=== PATIENT | male | born 1950 | race Caucasian/White ===

== ENCOUNTER 2020-10-14 06:04 | Day surgery (SDC) | payer OTHER ==
[~2020-10-14] VITALS: Ht 182.9 cm; Wt 98.6 kg
[~2020-10-14 06:04] MED LIST: ASPI325 PO; CITA20 PO; CLOP75 PO; ETOD500 PO; FLUO20; MELO7.5; METO25; OLME20 PO; PREG75 PO; Prinivil10 MG PO; RABE20; SIMV80 PO; TRAM50; TRAM50 PO
--- NOTE | 2020-10-14 16:19 | NUR ---
DISCHARGE INSTRUCTIONS REVIEWED WITH PATIENT, VERBAL UNDERSTANDING, PROVIDED WITH PAPERWORK. ALL PERSONAL BELONGINGS SENT WITH PATIENT, TAKEN OUT TO PRIVATE VEHICLE VIA W/C. NADN AT TIME OF DISPO. ENCOUARGED TO FOLLOW UP SCHEDULED.
== END 2020-10-14 16:00 | disposition home or self-care (01) ==
LOC: MHTC 06:04
DX: Z45.02 Encounter for adjustment and management of automatic implantable cardiac defibrillator (principal); I42.9 Cardiomyopathy, unspecified; I49.01 Ventricular fibrillation; I10 Essential (primary) hypertension; I25.10 Atherosclerotic heart disease of native coronary artery without angina pectoris; Z87.891 Personal history of nicotine dependence
CPT/HCPCS: 33262; 99152; 99153; C1722; C1781; J0690; J1644; J2250; J3010; J7030; J7040

== ENCOUNTER 2021-03-24 11:56 | Emergency (ER) | payer OTHER ==
[~2021-03-24] VITALS: Ht 182.9 cm; Wt 97.5 kg
== END 2021-03-24 15:11 | disposition home or self-care (01) ==
LOC: ER 11:56
DX: U07.1 COVID-19 (principal); I25.2 Old myocardial infarction; Z79.899 Other long term (current) drug therapy; Z79.82 Long term (current) use of aspirin; Z79.02 Long term (current) use of antithrombotics/antiplatelets; Z87.891 Personal history of nicotine dependence
CPT/HCPCS: 99281-25; M0243; Q0243

== ENCOUNTER 2024-10-06 11:36 | Emergency (ER) | payer OTHER ==
[~2024-10-06] VITALS: Ht 182.9 cm; Wt 97.5 kg
[~2024-10-06 11:36] MED LIST changes: +METO25ER PO; -SIMV80 PO; +Zocor20 MG PO
--- NOTE | 2024-10-06 11:39 | NUR ---
RAPID RESPONSE CALL TO ORTHO GYM AT 1127 PT FELT DIZZY. HE DID STATE HE TOOK ALL HIS BP MEDICATION THIS AM BEFORE COMING IN. PT WAS BRISKLY SENT TO THE ER VIA WHEELCHAIR TO BE CHECKED IN. CATRACHITA ANDRES RN RESPONDED TO RAPID RESPONSE CALL ALONG WITH PCU COORDINATOR SERA RIVERO RN.
[2024-10-06 12:08] LABS: BASOPHILS ABSOLUTE AUTO 0.03 K/mm3 (0.00-0.23); BASOPHILS PERCENT AUTO 0 % (0-2); EOSINOPHILS ABSOLUTE AUTO 0.19 K/mm3 (0.00-0.68); EOSINOPHILS PERCENT AUTO 2 % (0-6); Hematocrit 40.1 % (37.0-53.0); Hemoglobin 13.5 g/dL (13.5-17.5); IMMATURE GRAN ABSOLUTE AUTO 0.02 K/mm3 (0.00-0.10); IMMATURE GRAN PERCENT AUTO 0 % (0-1); LYMPHOCYTES ABSOLUTE AUTO 4.23 K/mm3 (0.84-5.20); LYMPHOCYTES PERCENT AUTO 42 % (21-46); MONOCYTES ABSOLUTE AUTO 0.74 K/mm3 (0.16-1.47); MONOCYTES PERCENT AUTO 7 % (4-13); Mean Corpuscular HGB 31.8 pg (26.0-34.0); Mean Corpuscular HGB Conc 33.7 g/dL (31.5-36.5); Mean Corpuscular Volume 95 fL (80-100); Mean Platelet Volume 11.9 fL (9.1-12.4); NEUTROPHILS ABSOLUTE AUTO 4.87 K/mm3 (1.96-9.15); NEUTROPHILS PERCENT AUTO 48 % (41-73); Platelet Count 208 K/mm3 (150-400); RDW Coefficient Variation 13.3 % (11.7-14.2); RDW Standard Deviation 45.1 fL (35.1-46.3); Red Blood Cell Count 4.24 M/mm3 (4.30-5.90); White Blood Cell Count 10.08 K/mm3 (4.00-11.30)
[2024-10-06 12:14] LABS: Albumin/Globulin Ratio 1.2 (0.8-1.8); Bilirubin, Total 0.5 mg/dL (0.1-1.0); Bun/Creatinine Ratio 23.7 (12.0-20.0); Calcium, Blood 8.8 mg/dL (8.5-10.1); Creatinine, Blood 1.18 mg/dL (0.60-1.20); Globulin, Blood 3.2 g/dL (2.2-4.0); Total Protein, Blood 7.2 g/dL (6.4-8.2)
[2024-10-06] MEDS ORDERED: NS 1,000 ML IV SCH ×3 (12:15→14:25)
[2024-10-06 14:30] VITALS: BP 135/72
== END 2024-10-06 14:47 | disposition home or self-care (01) ==
LOC: ER 11:36
PROVIDERS: Student in an Organized Health Care Education/Training Program
DX: E86.1 Hypovolemia (principal); I95.9 Hypotension, unspecified; E78.5 Hyperlipidemia, unspecified; I10 Essential (primary) hypertension; I25.2 Old myocardial infarction; Z79.82 Long term (current) use of aspirin; Z79.899 Other long term (current) drug therapy; Z87.891 Personal history of nicotine dependence
CPT/HCPCS: 71046; 80053; 82947; 84484; 85025; 93005; 93010; 99284-25; J7030

== ENCOUNTER 2024-10-22 05:54 | Day surgery (SDC) | payer OTHER ==
[2024-10-21 21:35] VITALS: BP 110/66
[~2024-10-22] VITALS: Ht 182.9 cm; Wt 95.0 kg
[2024-10-22] VITALS (19 sets, daily range): BP systolic 82–137; BP diastolic 52–86
[2024-10-22] MEDS ORDERED: Ondansetron HCl 2 MG / ML 2ML Vial ONE (06:13)
[2024-10-22] MEDS ORDERED: Ketorolac Tromethamine 30mg Vial ONE (06:13)
[2024-10-22] MEDS ORDERED: Dexamethasone Sod Phos 10 MG/ML 1ML VIAL ONE (06:13)
[2024-10-22] MEDS ORDERED: Lidocaine HCl 2% 20 ML MDV ONE (06:13)
[2024-10-22] MEDS ORDERED: CeFAZolin Sodium 2,000 MG in NS 100 ML IV SCH ×2 (06:20→15:45)
[2024-10-22] MEDS ORDERED: Chlorhexidine Mouth Care 15 ML UDC MT SCH (06:20)
[2024-10-22] MEDS ORDERED: OxyCODONE HCL 10 MG TABCR PO SCH (06:20)
[2024-10-22] MEDS ORDERED: Ropivacaine 0.5% HCl/Pf 123.125 MG,EPINEPHrine HCL 0.25 MG,Ketorolac Tromethamine 15 MG... INFIL SCH (06:20)
[2024-10-22] MEDS ORDERED: Lactated Ringer's 1,000 ML IV SCH ×2 (06:20→07:20)
[2024-10-22] MEDS ORDERED: Tranexamic Acid 100 ML IV SCH (06:20)
[2024-10-22] MEDS ORDERED: Acetaminophen 500 MG Tab PO SCH ×2 (06:20→08:00)
[2024-10-22] MEDS ORDERED: Dexmedetomidine HCL 200 MCG / 2 ML ONE (06:22)
[2024-10-22] MEDS ORDERED: propofoL 100 ML IV ONE (06:22)
[2024-10-22] MEDS ORDERED: Bupivacaine 0.5% Inj 10 ML Vial ONE (06:22)
[2024-10-22] MEDS ORDERED: propofoL 0 ML IV ONE (06:28)
[2024-10-22] MEDS ORDERED: CeFAZolin Sodium 2,000 MG VIAL ONE (06:48)
[2024-10-22] MEDS ORDERED: FentaNYL Citrate 50 MCG/ML 2 ML Injection ONE (07:02)
--- NOTE | 2024-10-22 07:07 | NUR ---
Wheelchaired into Day Surgery. History, Chart, Medications and Allergies reviewed before start of procedure. Pre-Op teaching done. Pt verbalizes understanding.
[2024-10-22] MEDS ORDERED: Bisacodyl 10 MG Supp PR PRN (07:10)
[2024-10-22] MEDS ORDERED: HYDROmorphone HCl/Pf 1MG SYR IV PRN (07:10)
[2024-10-22] MEDS ORDERED: DiphenhydrAMINE HCL 25 MG Cap PO PRN (07:10)
[2024-10-22] MEDS ORDERED: Prochlorperazine Edisylate 10 mg Vial IV PRN (07:15)
[2024-10-22] MEDS ORDERED: OxyCODONE HCL 5 MG TAB PO PRN ×2 (07:15)
[2024-10-22] MEDS ORDERED: Promethazine HCl 25 MG Tab PO PRN (07:15)
[2024-10-22] MEDS ORDERED: Vancomycin HCL 1,000 MG in NS 250 ML IV SCH ×3 (07:20→20:00)
[2024-10-22] MEDS ORDERED: Magnesium Hydroxide Conc 10 ML UDC PO PRN (07:20)
[2024-10-22] MEDS ORDERED: Ondansetron HCl 2 MG / ML 2ML Vial IV PRN (07:20)
[2024-10-22] MEDS ORDERED: Metoclopramide HCl 5MG / ML 2ML Vial IV PRN (07:20)
[2024-10-22] MEDS ORDERED: ePHEDrine Sulfate 50 MG/ML 1ML Injection ONE ×2 (07:40→10:22)
[2024-10-22] MEDS ORDERED: Vasopressin 20 UNITS/ML 1ML Vial ONE (08:03)
[2024-10-22] MEDS ORDERED: Phenylephrine HCl 100 MCG/ML-NS 10MLSYR (1MG/10ML) ONE ×2 (08:08→08:36)
[2024-10-22] MEDS ORDERED: Vancomycin HCl 1000 MG ADDvantage ONE (08:22)
[2024-10-22] MEDS ORDERED: Glycopyrrolate 0.2 MG/ML 5ML VIAL ONE (08:36)
[2024-10-22] MEDS ORDERED: Lactated Ringer's 1,000 ML IV ONE (10:25)
--- NOTE | 2024-10-22 10:48 | NUR ---
PACU NOTE PT HYPOTENSIVE AT 1020, BP 82/57. PT GIVEN 10MG EPHEDRINE PER DR MADRIGAL. PT TO STAY IN PACU MONITORING FOR 1/2 HR C STABLE BLOOD PRESSURES PER DR MADRIGAL. NO OTHER CONCERNS, HR REMAINS REGULAR IN THE 70'S-80'S. WILL CONTINUE TO MONITOR IN PACU.
--- NOTE | 2024-10-22 11:10 | NUR ---
POST OP ARRIVAL TO SURGICAL UNIT VIA HOSPITAL BED. ALERT, ORIENTED, & PLEASANT. LUNGS CLEAR & HRR. R HIP/THIGH w/ 3 SITES COVERED w/ TELFA & TEGADERM. NO DRNG NOTED. PPP & ABLE TO WIGGLE TOES. DENIES HAVING ANY NUMBESS FEELING & DESCRIBES THE PAIN A "TOOTHACHE". DECLINES PAIN MEDS. CRYOTHERAPY IN USE. SNACKS & DRINKS GIVEN. FAMILY TO BEDSIDE.
[2024-10-22] MEDS ORDERED: Ketorolac Tromethamine 15mg Vial IV SCH (12:00)
--- NOTE | 2024-10-22 20:04 | NUR ---
SHIFT SUMMARY HAS DONE WELL POST OP OTHER THEN HAVING SOME ASYMTOMATIC ORTHOSTATIC HYPOTENSION w/ THERAPY. UPON AMBULATION TO BATHROOM, NO ISSUES. CURRENTLY DENYING PAIN. EATING & DRINKING WELL. ABLE TO VOID x 1. IVF CONTINUE x 1 BAG PER CARDIOLOGY RECOMENDATION. TELE IN PLACE; NO EVENTS NOTED.
[2024-10-22] MEDS ORDERED: Docusate Sodium 100 MG Cap PO SCH (21:00)
[2024-10-22] MEDS ORDERED: Atorvastatin 10 MG Tab PO SCH (21:00)
[2024-10-22] MEDS ORDERED: Metoprolol Succinate 25 MG TABCR PO SCH (21:00)
[2024-10-22] MEDS ORDERED: Lisinopril 10 MG Tab PO SCH (21:00)
[2024-10-23 00:25] VITALS: BP 105/68
[2024-10-23 05:14] VITALS: BP 124/66
--- NOTE | 2024-10-23 06:05 | NUR ---
SHIFT SUMMARY CELESTINE WAS ALERT AND FULLY ORIENTED ON ASSESSMENT. DRESSINGS TO R HIP X3 C/D/I. PT ABLE TO AMBULATE WITH FWW AND GB, PT HAS PRODUCED POST OP VOID. PT DENIES PAIN AND SOB DISTAL CIRCULATION AND SENSATION INTACT TO EXTS. NO ACUTE EVENTS NO NOTED CHANGES TO PT CONDITION.
[2024-10-23 06:13] LABS: BASOPHILS ABSOLUTE AUTO 0.01 K/mm3 (0.00-0.23); BASOPHILS PERCENT AUTO 0 % (0-2); EOSINOPHILS ABSOLUTE AUTO 0.01 K/mm3 (0.00-0.68); EOSINOPHILS PERCENT AUTO 0 % (0-6); Hematocrit 32.6 % (37.0-53.0); Hemoglobin 10.9 g/dL (13.5-17.5); IMMATURE GRAN ABSOLUTE AUTO 0.03 K/mm3 (0.00-0.10); IMMATURE GRAN PERCENT AUTO 0 % (0-1); LYMPHOCYTES ABSOLUTE AUTO 1.76 K/mm3 (0.84-5.20); LYMPHOCYTES PERCENT AUTO 16 % (21-46); MONOCYTES ABSOLUTE AUTO 0.77 K/mm3 (0.16-1.47); MONOCYTES PERCENT AUTO 7 % (4-13); Mean Corpuscular HGB 31.9 pg (26.0-34.0); Mean Corpuscular HGB Conc 33.4 g/dL (31.5-36.5); Mean Corpuscular Volume 95 fL (80-100); Mean Platelet Volume 11.7 fL (9.1-12.4); NEUTROPHILS ABSOLUTE AUTO 8.31 K/mm3 (1.96-9.15); NEUTROPHILS PERCENT AUTO 76 % (41-73); Platelet Count 170 K/mm3 (150-400); RDW Coefficient Variation 13.4 % (11.7-14.2); RDW Standard Deviation 46.6 fL (35.1-46.3); Red Blood Cell Count 3.42 M/mm3 (4.30-5.90); White Blood Cell Count 10.89 K/mm3 (4.00-11.30)
[2024-10-23 06:33] LABS: Bun/Creatinine Ratio 17.2 (12.0-20.0); Calcium, Blood 8.4 mg/dL (8.5-10.1); Creatinine, Blood 1.22 mg/dL (0.60-1.20); Magnesium, Blood 1.7 mg/dL (1.6-2.4); Potassium, Blood 4.7 mmol/L (3.5-5.5)
[2024-10-23 07:41] VITALS: BP 114/59
[2024-10-23] MEDS ORDERED: ONDA4ODT SL (08:58)
[2024-10-23] MEDS ORDERED: SULTRIDS PO (08:59)
[2024-10-23] MEDS ORDERED: OXAYDO5 M1 PO (08:59)
[2024-10-23] MEDS ORDERED: Aspirin 325 MG Tab PO SCH (09:00)
[2024-10-23] MEDS ORDERED: Pregabalin 75 MG Cap PO SCH (09:00)
[2024-10-23] MEDS ORDERED: Trimethoprim/Sulfamethoxazole DS Tab PO SCH (09:00)
--- NOTE | 2024-10-23 12:09 | NUR ---
DISCHARGE PT EDUCATED ON AND RECEIVED PRINTED DISCHARGE INSTRUCTIONS AND VERBALIZED AN UNDERSTANDING. PT REPORTS FILLING NEW RX'S PRIOR TO SURGERY. EXTRA DRESSING GIVEN TO PT. IV DC'D. TELE BOX RETURNED TO PCU. PT GATHERED ALL PERSONAL BELONGINGS. FAMILY HERE TO TAKE PT HOME. PT W/C OUT TO VEHICLE.
[2024-10-23] MEDS ORDERED: Rivaroxaban 10 MG Tab PO SCH (17:00)
== END 2024-10-23 12:16 | disposition home or self-care (01) ==
LOC: ORSCMMR 05:54 → ORD 07:30 → ORSCMMR 07:30 → SURS 10:16 → ORSCMMR 10-23 12:16 → SURS 10-23 12:16
PROVIDERS: Orthopaedic Surgery
PROC: 0SR90JA Replacement of Right Hip Joint with Synthetic Substitute, Uncemented, Open Approach (ICD-10-PCS; principal; 2024-10-22 07:30)
DX: M16.11 Unilateral primary osteoarthritis, right hip (principal); I25.2 Old myocardial infarction; I25.10 Atherosclerotic heart disease of native coronary artery without angina pectoris; Z87.891 Personal history of nicotine dependence; K21.9 Gastro-esophageal reflux disease without esophagitis; F32.A Depression, unspecified; E78.5 Hyperlipidemia, unspecified; E78.00 Pure hypercholesterolemia, unspecified; Z79.899 Other long term (current) drug therapy; Z79.82 Long term (current) use of aspirin
CPT/HCPCS: 36415; 72170; 80048; 83735; 85025; 93282; 97110; 97112; 97161; 97165; 97530; 97535; A9270; C1713; C1776; J0171; J0690; J0735; J1100; J1885; J2371; J2405; J2704; J2795; J3010; J3370; J7050; J7120

== ENCOUNTER 2025-06-01 12:50 | Inpatient (IN) | payer OTHER ==
[~2025-06-01] VITALS: Ht 182.9 cm; Wt 92.3 kg
[~2025-06-01 12:50] MED LIST changes: +ARTHRITIS PAIN150 GM TOP; +METO25 PO; +ONDA4ODT SL; +OXAYDO5 M1 PO; +SULTRIDS PO; +ZOCOR20 MG PO
--- NOTE | 2025-06-01 14:50 | NUR ---
PT ARRIVED TO ROOM 362.
[2025-06-01 16:03] VITALS: BP 103/74
[2025-06-01] MEDS ORDERED: FLU VACC TS2025(65UP)/MF59C/PF 45 MCG/0.5 ML SYRINGE IM SCH (16:15)
[2025-06-01] MEDS ORDERED: Vancomycin (Pharmacy Consult) IV SCH (17:00)
[2025-06-01] MEDS ORDERED: NS 250 ML IV PRN (17:05)
[2025-06-01 17:38] LABS: Hematocrit 25.2 % (37.0-53.0); Hemoglobin 8.1 g/dL (13.5-17.5); Mean Corpuscular HGB Conc 32.1 g/dL (31.5-36.5); Mean Corpuscular Volume 94 fL (80-100); NRBC ABSOLUTE 0.00 K/mm3 (0.00-0.02); NRBC Auto 0.0 /100 WBC (0.0-0.2); Platelet Count 305 K/mm3 (150-400); RDW Coefficient Variation 15.2 % (11.7-14.2); RDW Standard Deviation 53.0 fL (35.1-46.3)
[2025-06-01] MEDS ORDERED: Polyethylene Glycol 3350 17 gm PO PRN (17:45)
[2025-06-01 17:58] LABS: Vancomycin, Random 11.0 ug/mL
[2025-06-01 18:08] LABS: Anion Gap 5.0 mmol/L (3-11); Blood Urea Nitrogen 24.0 mg/dL (8-24); CO2, Blood 33.0 mmol/L (21-32); Calcium, Blood 8.6 mg/dL (8.5-10.1); Chloride, Blood 101.0 mmol/L (98-108); Creatinine, Blood 1.47 mg/dL (0.60-1.20); Glucose, Blood 107.0 mg/dL (70-99); Potassium, Blood 3.8 mmol/L (3.5-5.5); Sodium, Blood 135.0 mmol/L (136-145)
--- NOTE | 2025-06-01 20:04 | NUR ---
SHIFT SUMMARY DIRECT ADMIT THIS AFTERNOON. PT IS A/OX4. BEDREST AT THIS TIME. ON RA, SATS >92%. ON TELE RUNNING NORMAL SINUS RYTHYM IN THE 'S. PT REPORTS CHRONIC BACK PAIN, MEDICATED PER SEP. PT IS CONT/INCONT OF BOWEL AND BLADDER, X2 SOFT BM'S THIS AFTERNOON. FAMILY AT BEDSIDE. PT IS PLEASANT AND COOPERATIVE WITH CARE AND CALLS APPROPRIATELY.
[2025-06-01 20:27] VITALS: BP 121/85
[2025-06-01] MEDS ORDERED: Lactobacil 2-S.Thermo-Bifido 1 1 Cap PO SCH (21:00)
[2025-06-02] VITALS (9 sets, daily range): BP systolic 122–172; BP diastolic 59–107
--- NOTE | 2025-06-02 06:40 | NUR ---
Shift Summary PT in enteric isolation d/t recent positive CDIFF test from recent April admit. No BM's this shift, report of 2 soft BM during day shift. Continent voids into a urinal, ~250 mL out of kristie urine this shift. Pt medicated for back pain at the start of shift, no other c/o of pain. He slept well t/o most of the night. Medicated with IV ABX as ordered. Pt on bedrest. He states he was ambulatory before being hospitalized. PICC line in [facility] bath provided. BPs done on R calf, BUE DVTs per report. Upper extremity perfusion is good, strong radial pulses and cap refill. Pt AOx4, Teller.
[2025-06-02 12:24] LABS: Ferritin, Serum 404.0 ng/mL (26-388); Total Iron Binding Capacity 165.0 ug/dL (250-450)
[2025-06-02] MEDS ORDERED: Iron Dextran 50 MG / ML 2ML Vial IV ONE (14:05)
[2025-06-02] MEDS ORDERED: Iron Dextran 975 MG in NS 250 ML IV ONE (15:00)
--- NOTE | 2025-06-02 19:23 | NUR ---
SHIFT SUMMARY PT IS A/OX4. BEDREST AT THIS TIME. NO ACUTE EVENTS THROUGHOUT THIS SHIFT. ON TELE RUNNING NORMAL SINUS RYTHYM. MEDICATED WITH OXYCODONE PER SEP FOR CHRONIC BACK PAIN. X1 LOOSE, INCONT BM THIS MORNING. USING URINAL INDEPENDENTLY AT BEDSIDE. PT IS PLEASANT AND COOPERATIVE WITH CARE AND CALLS APPROPRIATELY.
[2025-06-02] MEDS ORDERED: Arginine/Glutamine/Calcium Hmb 1 Packet PO SCH (21:00)
[2025-06-02 21:22] LABS: Creatinine, Blood 1.38 mg/dL (0.60-1.20); Vancomycin, Trough 15.6 ug/mL (5.0-10.0)
[2025-06-03 03:47] VITALS: BP 134/65
[2025-06-03 05:10] LABS: Hematocrit 23.2 % (37.0-53.0); Hemoglobin 7.4 g/dL (13.5-17.5); Mean Corpuscular HGB Conc 31.9 g/dL (31.5-36.5); Mean Corpuscular Volume 92 fL (80-100); NRBC ABSOLUTE 0.00 K/mm3 (0.00-0.02); NRBC Auto 0.0 /100 WBC (0.0-0.2); Platelet Count 389 K/mm3 (150-400); RDW Coefficient Variation 14.9 % (11.7-14.2); RDW Standard Deviation 50.5 fL (35.1-46.3)
[2025-06-03 05:44] LABS: Anion Gap 11.0 mmol/L (3-11); Blood Urea Nitrogen 22.0 mg/dL (8-24); CO2, Blood 27.0 mmol/L (21-32); Calcium, Blood 8.3 mg/dL (8.5-10.1); Chloride, Blood 104.0 mmol/L (98-108); Creatinine, Blood 1.27 mg/dL (0.60-1.20); Glucose, Blood 112.0 mg/dL (70-99); Potassium, Blood 3.5 mmol/L (3.5-5.5); Sodium, Blood 138.0 mmol/L (136-145)
--- NOTE | 2025-06-03 06:16 | NUR ---
ASSUMED CARE APPROXIMATELY 0300. REPORT RECEIVED FROM SABINO KOWALSKI. PT HAS LOOSE STOOLS X2, XL SIZW. BROWN IN COLOR, DARKER. ATTENDS IN PLACE, INCONTINENT. A/O X3, COOPERATIVE WITH CARE. IV ABX'S ADMINISTERED ORDERED. NO COMPLAINTS OF PAIN OR DISCOMFORT. BED AT THE LOWEST POSITION, CALL LIGHT W/I REACH. PT IS ABLE TO MAKE HIS NEEDS KNOWN.
[2025-06-03 07:51] VITALS: BP 122/71
[2025-06-03 11:03] VITALS: BP 105/65
--- NOTE | 2025-06-03 11:48 | NUR ---
CALLED DR GUARDADO- SBP 105 ORDER TO HOLD SPIRONOLACTONE AND LASIX AT THIS TIME.
--- NOTE | 2025-06-03 15:29 | NUR ---
SHIFT SUMMARY- PT ALERT AND ORIENTED 1P MAX ASSIST WITH TRANSFERS. PT IN BED, CALL LIGHT IN REACH NO S&S OF DISTRESS NOTED. PLAN IS TO DC EARLY TOMORROW TO [facility] FOR ABX INFUSIONS TID IV THROUGH THE LEFT UPPER ARM PICC. WILL PASS ON TO NIGHT RN IN BEDSIDE REPORT.
[2025-06-03 15:32] VITALS: BP 120/75
--- NOTE | 2025-06-03 19:26 | NUR ---
CALLED DR GUARDADO- SPOKE TO DR GUARDADO ABOUT THE EXCORIATION IN THE PT GROIN. HE WAS GOING TO PLACE AN ORDER FOR NYSTATIN CREAM. ORDER STILL NOT IN AT THE TIME OF SHIFT CHANGE. ORDER PLACED A VERBAL ORDER HE STATED HE WOULD ORDER IT.
[2025-06-03 19:43] VITALS: BP 122/80
[2025-06-03 23:30] VITALS: BP 131/78
[2025-06-04 03:36] VITALS: BP 116/80
[2025-06-04 07:15] VITALS: BP 118/69
[2025-06-04 09:11] VITALS: BP 120/75
--- NOTE | 2025-06-04 14:53 | NUR ---
DISCHARGE NOTE- PT WAS DC'D TO [facility]. GAVE TELEPHONE REPORT TO SABINO HOWE AT [facility]. SHE HAD NO FURTHER QUESTIONS AT THAT TIME. PT WAS TAKEN VIA WC TRANSPORT. SIT TO STAND LIFT WAS USED TO TRANSFER HIM SAFELY TO THE WHEELCHAIR. PT DISCHARGED WITH THE PICC LINE IN THE [place]. SABINO AWARE.
== END 2025-06-04 11:27 | DRG 539 ==
LOC: MEDS 12:50 → ENPENDDIS 06-03 18:27 → MEDS 06-04 11:27
PROVIDERS: Internal Medicine; ADMIT Hospitalist
DX: M86.9 Osteomyelitis, unspecified (principal); A41.9 Sepsis, unspecified organism; I33.0 Acute and subacute infective endocarditis; R65.21 Severe sepsis with septic shock; I50.22 Chronic systolic (congestive) heart failure; N17.9 Acute kidney failure, unspecified; I13.0 Hypertensive heart and chronic kidney disease with heart failure and stage 1 through stage 4 chronic kidney disease, or unspecified chronic kidney disease; M46.40 Discitis, unspecified, site unspecified; N18.30 Chronic kidney disease, stage 3 unspecified; I25.10 Atherosclerotic heart disease of native coronary artery without angina pectoris; I25.2 Old myocardial infarction; I51.3 Intracardiac thrombosis, not elsewhere classified; B95.62 Methicillin resistant Staphylococcus aureus infection as the cause of diseases classified elsewhere; D50.9 Iron deficiency anemia, unspecified; Z86.2 Personal history of diseases of the blood and blood-forming organs and certain disorders involving the immune mechanism; Z86.74 Personal history of sudden cardiac arrest; Z95.810 Presence of automatic (implantable) cardiac defibrillator; Z95.5 Presence of coronary angioplasty implant and graft; Z86.711 Personal history of pulmonary embolism; Z86.19 Personal history of other infectious and parasitic diseases; Z79.899 Other long term (current) drug therapy
CPT/HCPCS: 36569; 80048; 80202; 82565; 82728; 83540; 83550; 85027; 97110; 97162; 97530; A9270; J0712; J1750; J3373; J7050

== ENCOUNTER 2025-06-08 17:28 | Emergency (ER) | payer OTHER ==
[~2025-06-08] VITALS: Ht 182.9 cm; Wt 94.8 kg
[2025-06-08] MEDS ORDERED: NS 1,000 ML IV SCH (18:15)
[2025-06-08] MEDS ORDERED: Morphine Sulfate 10 MG/ML 1MLSYR IV ONE (18:20)
[2025-06-08 18:31] LABS: BASOPHILS ABSOLUTE AUTO 0.03 K/mm3 (0.00-0.23); BASOPHILS PERCENT AUTO 0 % (0-2); EOSINOPHILS ABSOLUTE AUTO 0.03 K/mm3 (0.00-0.68); EOSINOPHILS PERCENT AUTO 0 % (0-6); Hematocrit 24.9 % (37.0-53.0); Hemoglobin 8.2 g/dL (13.5-17.5); IMMATURE GRAN ABSOLUTE AUTO 0.17 K/mm3 (0.00-0.10); IMMATURE GRAN PERCENT AUTO 2 % (0-1); LYMPHOCYTES ABSOLUTE AUTO 1.66 K/mm3 (0.84-5.20); LYMPHOCYTES PERCENT AUTO 16 % (21-46); MONOCYTES ABSOLUTE AUTO 0.81 K/mm3 (0.16-1.47); MONOCYTES PERCENT AUTO 8 % (4-13); Mean Corpuscular HGB Conc 32.9 g/dL (31.5-36.5); Mean Corpuscular Volume 96 fL (80-100); NEUTROPHILS ABSOLUTE AUTO 7.43 K/mm3 (1.96-9.15); NEUTROPHILS PERCENT AUTO 73 % (41-73); NRBC ABSOLUTE 0.00 K/mm3 (0.00-0.02); NRBC Auto 0.0 /100 WBC (0.0-0.2); Platelet Count 354 K/mm3 (150-400); RDW Coefficient Variation 15.8 % (11.7-14.2); RDW Standard Deviation 54.4 fL (35.1-46.3)
[2025-06-08 18:45] LABS: Alanine Aminotransfer (ALT/SGP 107.0 U/L (12-78); Albumin, Blood 2.1 g/dL (3.4-5.0); Albumin/Globulin Ratio 0.4 (0.8-1.8); Anion Gap 9.0 mmol/L (3-11); Aspartate Aminotrans (AST/SGOT 74.0 U/L (12-37); Bilirubin, Total 0.4 mg/dL (0.1-1.0); Blood Urea Nitrogen 24.0 mg/dL (8-24); CO2, Blood 27.0 mmol/L (21-32); Calcium, Blood 8.7 mg/dL (8.5-10.1); Chloride, Blood 106.0 mmol/L (98-108); Creatinine, Blood 1.58 mg/dL (0.60-1.20); Globulin, Blood 4.8 g/dL (2.2-4.0); Glucose, Blood 116.0 mg/dL (70-99); Potassium, Blood 4.3 mmol/L (3.5-5.5); Sodium, Blood 138.0 mmol/L (136-145); Total Protein, Blood 6.9 g/dL (6.4-8.2)
[2025-06-09] MEDS ORDERED: Ketorolac Tromethamine 15mg Vial IV ONE
[2025-06-09 00:01] LABS: Source, Urine Straight Cath
[2025-06-09] MEDS ORDERED: AZIT250 PO ×2 (00:07→01:47)
[2025-06-09 00:23] LABS: Bilirubin, Urine Neg (Neg); Glucose Qualitative, Urine 3+ (Neg); Ketones, Urine Neg (Neg); Leukocyte Esterase, Urine 3+ (Neg); Protein, Urine 2+ (Neg); Specific Gravity, Urine 1.010 (1.003-1.022); Urobilinogen, Urine NORM (Normal)
[2025-06-09 00:30] VITALS: BP 116/68
[2025-06-09 00:37] LABS: Color, Urine Yellow (P-Yellow)
[2025-06-09 00:39] LABS: White Blood Cells, Urine 50-100 /hpf (0-5); Yeast/Fungi Urine Many /hpf
[2025-06-09] MEDS ORDERED: CEPH500 PO ×2 (00:50→01:47)
== END 2025-06-09 01:05 | disposition home or self-care (01) ==
LOC: ER 17:28
PROVIDERS: Student in an Organized Health Care Education/Training Program
DX: R41.0 Disorientation, unspecified (principal); J18.9 Pneumonia, unspecified organism; N39.0 Urinary tract infection, site not specified; M54.9 Dorsalgia, unspecified; E78.5 Hyperlipidemia, unspecified; I10 Essential (primary) hypertension; Z87.891 Personal history of nicotine dependence; Z79.82 Long term (current) use of aspirin; Z79.899 Other long term (current) drug therapy
CPT/HCPCS: 73502; 74177; 80053; 81001; 83605; 85025; 87086; 87106; 93005; 93010; 93971; 96361; 96374-59; 96375; 99285-25; A9270; J1885; J2270; J7030; Q9967

== ENCOUNTER 2025-06-25 02:14 | Day surgery (SDC) | payer OTHER ==
[~2025-06-25 02:14] MED LIST changes: +AZIT250 PO; +CEPH500 PO; +PREG25 PO
[2025-06-25 07:49] VITALS: BP 68/43
[2025-06-25 08:14] LABS: Vancomycin, Trough 19.0 ug/mL (5.0-10.0)
--- NOTE | 2025-06-25 12:51 | NUR ---
LATE ENTRY FOR 0820 THIS MORNING Pt arrived to [facility] this morning, vanco trough drawn. Vital signs taken, first BP = 52/25 with a HR = 125. Rechecked BP a second time = 67/43, HR = 111. Manual BP recheck a third time = 68/40 with HR 90. Multiple attempts with BP to R upper and lower arm as well as L lower arm with machine and manual. All SBP readins 50-60s. Pt dishcharged from SNF after a 20 day stay yesterday. He reports that he took all of his usual home meds this morning that he took prior to his recent hospital/rehab stay. One of the medications was metoprolol. He reports dizziness, weakness, SOB with exertion and he is pale. He denies any chest pain. Report given to Guera in the ER to notify her that this technical document writer will be bringing up a pt with hypotension. Pt taken to ER in his wheelchair by this technical document writer also accompanied by his at 0820.
[2025-06-25] MEDS ORDERED: ELIQUIS5 M2 PO (13:48)
[2025-06-25] MEDS ORDERED: FARXIGA10 MG PO (13:48)
[2025-06-25] MEDS ORDERED: POTA10T PO (13:49)
[2025-06-25] MEDS ORDERED: FURO40 PO (13:49)
[2025-06-25] MEDS ORDERED: SPIR25 PO (13:50)
[2025-06-25] MEDS ORDERED: CEPH500 PO (13:51)
[2025-06-25] MEDS ORDERED: ENTRESTO 24 MG1 EACH PO (13:51)
[2025-06-25] MEDS ORDERED: ATOR40TA PO (13:52)
[2025-06-25] MEDS ORDERED: JARDIANCE10 MG PO (13:53)
[2025-06-25] MEDS ORDERED: Vancomycin1 GM/2501 IV (13:56)
== END 2025-06-25 08:20 | disposition home or self-care (01) ==
LOC: ATC 02:14
PROVIDERS: Internal Medicine Infectious Disease
DX: T82.7XXA Infection and inflammatory reaction due to other cardiac and vascular devices, implants and grafts, initial encounter (principal); R78.81 Bacteremia; B95.7 Other staphylococcus as the cause of diseases classified elsewhere; I50.20 Unspecified systolic (congestive) heart failure; I25.10 Atherosclerotic heart disease of native coronary artery without angina pectoris; I11.0 Hypertensive heart disease with heart failure; E78.5 Hyperlipidemia, unspecified
CPT/HCPCS: 36591; 80202; 99211

== ENCOUNTER 2025-06-25 08:20 | Inpatient (IN) | payer OTHER ==
[~2025-06-25] VITALS: Ht 182.9 cm; Wt 86.3 kg
[2025-06-25] MEDS ORDERED: Vancomycin (Pharmacy Consult) IV PRN (08:55)
[2025-06-25] MEDS ORDERED: NS 1,000 ML IV SCH (09:00)
[2025-06-25 09:20] LABS: BASOPHILS ABSOLUTE AUTO 0.02 K/mm3 (0.00-0.23); BASOPHILS PERCENT AUTO 0 % (0-2); EOSINOPHILS ABSOLUTE AUTO 0.10 K/mm3 (0.00-0.68); EOSINOPHILS PERCENT AUTO 1 % (0-6); Hematocrit 25.0 % (37.0-53.0); Hemoglobin 7.9 g/dL (13.5-17.5); IMMATURE GRAN ABSOLUTE AUTO 0.05 K/mm3 (0.00-0.10); IMMATURE GRAN PERCENT AUTO 1 % (0-1); LYMPHOCYTES ABSOLUTE AUTO 2.01 K/mm3 (0.84-5.20); LYMPHOCYTES PERCENT AUTO 19 % (21-46); MONOCYTES ABSOLUTE AUTO 0.97 K/mm3 (0.16-1.47); MONOCYTES PERCENT AUTO 9 % (4-13); Mean Corpuscular HGB Conc 31.6 g/dL (31.5-36.5); Mean Corpuscular Volume 93 fL (80-100); NEUTROPHILS ABSOLUTE AUTO 7.48 K/mm3 (1.96-9.15); NEUTROPHILS PERCENT AUTO 70 % (41-73); NRBC ABSOLUTE 0.00 K/mm3 (0.00-0.02); NRBC Auto 0.0 /100 WBC (0.0-0.2); Platelet Count 308 K/mm3 (150-400); RDW Coefficient Variation 15.0 % (11.7-14.2); RDW Standard Deviation 51.0 fL (35.1-46.3)
[2025-06-25 09:38] LABS: Alanine Aminotransfer (ALT/SGP 42.0 U/L (12-78); Albumin, Blood 2.5 g/dL (3.4-5.0); Albumin/Globulin Ratio 0.5 (0.8-1.8); Anion Gap 15.0 mmol/L (3-11); Aspartate Aminotrans (AST/SGOT 35.0 U/L (12-37); Bilirubin, Total 0.4 mg/dL (0.1-1.0); Blood Urea Nitrogen 41.0 mg/dL (8-24); CO2, Blood 18.0 mmol/L (21-32); Calcium, Blood 9.1 mg/dL (8.5-10.1); Chloride, Blood 103.0 mmol/L (98-108); Creatinine, Blood 2.04 mg/dL (0.60-1.20); Globulin, Blood 4.8 g/dL (2.2-4.0); Glucose, Blood 119.0 mg/dL (70-99); Potassium, Blood 5.6 mmol/L (3.5-5.5); Sodium, Blood 130.0 mmol/L (136-145); Total Protein, Blood 7.3 g/dL (6.4-8.2)
[2025-06-25] MEDS ORDERED: Pantoprazole Sodium 40 MG Injection IV ONE (10:35)
[2025-06-25] MEDS ORDERED: FLU VACC TS2025-26(6MOS UP)/PF 45 MCG/0.5 ML SYRINGE IM SCH (11:15)
[2025-06-25] MEDS ORDERED: Ondansetron HCl 2 MG / ML 2ML Vial IV PRN (11:20)
[2025-06-25] MEDS ORDERED: Vancomycin (Pharmacy Consult) IV SCH (11:20)
[2025-06-25] MEDS ORDERED: Pantoprazole Sodium 40 MG Injection IV SCH (12:00)
[2025-06-25 13:41] VITALS: BP 89/72
[2025-06-25] MEDS ORDERED: ELIQUIS5 M2 PO (13:48)
[2025-06-25] MEDS ORDERED: FARXIGA10 MG PO (13:48)
[2025-06-25] MEDS ORDERED: FURO40 PO (13:49)
[2025-06-25] MEDS ORDERED: POTA10T PO (13:49)
[2025-06-25] MEDS ORDERED: SPIR25 PO (13:50)
[2025-06-25] MEDS ORDERED: CEPH500 PO (13:51)
[2025-06-25] MEDS ORDERED: ENTRESTO 24 MG1 EACH PO (13:51)
[2025-06-25] MEDS ORDERED: ATOR40TA PO (13:52)
[2025-06-25] MEDS ORDERED: JARDIANCE10 MG PO (13:53)
[2025-06-25] MEDS ORDERED: Vancomycin1 GM/2501 IV (13:56)
[2025-06-25 14:38] VITALS: BP 84/65
[2025-06-25 17:03] VITALS: BP 100/46
--- NOTE | 2025-06-25 18:48 | NUR ---
ADMIT NOTE/SHIFT SUMMARY RECEIVED REPORT FROM SAY GALLO, TO ROOM 1 PERSON ASSIST TRANSFER TO BED. PT ORINETED TO ROOM AND CALL LIGHT. EDUCATED ON FALL AND FIRE RISK. PT ALERT, ORIENTED X4; CALM AND COOPERATIVE WITH CARE; [place] HAS HEARING AIDS. PT DENIES CHEST PAIN/PRESSURE, SOB, NAUSEA, DIZZINESS AND NUMB/TINGLING. TELE SINUS 80'S, BP SOFT. SPO2 >90% ON RA, BREATHING EVEN AND UNLABORED. ABD SOFT, NONTENDER, +BT T/O. NO EDEMA NOTED. WOUNDS TO LEFT TOES. RED AREA/ESCORIATION NOTED TO GROIN AND GLUTEAL CLEF, PICTURES IN CHART. OTHER VSS. CALL LIGHT WITHIN REACH.
[2025-06-25 19:42] VITALS: BP 91/67
[2025-06-25 23:26] VITALS: BP 88/55
[2025-06-26] VITALS (33 sets, daily range): BP systolic 76–115; BP diastolic 50–80
--- NOTE | 2025-06-26 00:28 | NUR ---
DR MELENDREZ CALLED AND NOTIFIED OF RECENT BP. T/O TO GIVE NS 500ML BOLUS X1. PATIENT IS ASYMPTOMATIC. LAYING UPRIGHT IN BED AND UTILIZING HIS CELL PHONE.
[2025-06-26] MEDS ORDERED: NS 500 ML IV ONE ×2 (00:30→00:37)
[2025-06-26 05:11] LABS: Hematocrit 23.4 % (37.0-53.0); Hemoglobin 7.2 g/dL (13.5-17.5); Mean Corpuscular HGB Conc 30.8 g/dL (31.5-36.5); Mean Corpuscular Volume 95 fL (80-100); NRBC ABSOLUTE 0.00 K/mm3 (0.00-0.02); NRBC Auto 0.0 /100 WBC (0.0-0.2); Platelet Count 287 K/mm3 (150-400); RDW Coefficient Variation 15.0 % (11.7-14.2); RDW Standard Deviation 52.2 fL (35.1-46.3)
[2025-06-26 05:36] LABS: Anion Gap 13 mmol/L (3-11); Blood Urea Nitrogen 35 mg/dL (8-24); CO2, Blood 18 mmol/L (21-32); Calcium, Blood 8.3 mg/dL (8.5-10.1); Chloride, Blood 107 mmol/L (98-108); Creatinine, Blood 1.53 mg/dL (0.60-1.20); Glucose, Blood 114 mg/dL (70-99); Potassium, Blood 4.5 mmol/L (3.5-5.5); Sodium, Blood 133 mmol/L (136-145); Vancomycin, Random 18.0 ug/mL
--- NOTE | 2025-06-26 06:30 | NUR ---
SHIFT SUMMARY PATIENT A/OX4. NO COMPLAINTS BESIDES CHRONIC HIP PAIN. REPOSITIONED, HEAT PAD, PRN PAIN MEDICATION FOR RELIEF. NICKY PO INTAKE WELL. GOOD URINE OUTPUT. UP TO BSC X1 WITH UNSTEADY GAIT TO VOID AND HAVE BM. SOFT BP OVERNIGHT. PATIENT GIVEN NS 500ML BOLUS X1 WHICH IMPROVED BP. PATIENT WENT INTO SVT BRIEFLY WHILE VOIDING IN URINAL IN THE BED. PATIENT ASYMPTOMATIC ALL NIGHT. NO OTHER ACUTE EVENTS OVERNIGHT. PLAN OF CARE ONGOING.
--- NOTE | 2025-06-26 07:34 | NUR ---
UPDATE PATIENT HYPOTENSIVE THIS AM, SBP IN 80'S, MAP >65, PATIENT DENYING DIZZINESS, NAUSEA, OR CHEST PAIN. PROVIDER CONTACTED REGARDING BLOOD PRESSURES, PROVIDER TO PUT IN NEW ORDERS.
[2025-06-26 08:33] LABS: Ferritin, Serum 1596.0 ng/mL (26-388); Total Iron Binding Capacity 149.0 ug/dL (250-450)
[2025-06-26] MEDS ORDERED: Peg/Electrolytes 4,000 ML BTL PO ONE (09:15)
--- NOTE | 2025-06-26 10:26 | NUR ---
PALLIATIVE CARE CONSULT : REQUESTED TO ADD CONSULT BY CALENDERER FOR ADVANCED CARE PLANNING. DISCUSSED DURING MDR. REVIEWED MEDICAL RECORD. NO POLST/AD ON FILE OR THROUGH OPR.
[2025-06-26] MEDS ORDERED: Alteplase Recombinant 2 MG / Vial IV ONE (15:25)
--- NOTE | 2025-06-26 15:38 | NUR ---
UPDATE PATIENT TO DAY SURGERY FOR ENDOSCOPY/COLONOSCOPY. PATIENT IS ALERT, NO COMPLAINTS, SHOWING NO SIGNS OF DISTRESS. PATIENT LEFT UNIT WITH DAY SURGERY RN AT [id number]
[2025-06-26] MEDS ORDERED: Ketamine HCl 100 MG / ML 5ML Vial ONE (15:40)
[2025-06-26] MEDS ORDERED: NS 1,000 ML IV SCH (15:55)
--- NOTE | 2025-06-26 16:00 | NUR ---
PT TO DSU IN STRETCHER. PT A&OX4, BREATHING RA, NO COMPLAINTS. WARM BLANKETS FOR COMFORT. Patient confirms NPO status and agrees with scheduled surgery. Pre-Op teaching done. Pt verbalizes understanding. RED LINE IN PICC FLUSHED AND RUNNING NS TKO PER ANESTHESIA.
[2025-06-26] MEDS ORDERED: Phenylephrine HCl 100 MCG/ML-NS 10MLSYR (1MG/10ML) ONE (17:36)
--- NOTE | 2025-06-26 17:59 | NUR ---
06/26/25 1759 Stephanie Gifford ENDO 1 @ 1606- CONFIRMED AND REVIEWED H&P, MEDCICATIONS, ALLERGIES, MEDICAL HISTORY, RESPIRATORY HISTORY, VITAL SIGNS, 3-LEAD EKG, CONSENTS, AND PHYSICIAN ORDERS. PATIENT CONFIRMS NPO STATUS AND AGREES WITH SCHEDULED PROCEDURE. MONITOR INTACT WITH CONTINUOUS PULSE OXIMETRY, CAPNOGRAPHY, 3-LEAD EKG, INTERMITTENT BP. SUPPLEMENTAL O2 TO BE TITRATED THROUGHOUT PROCEDURE TO MAINTAIN O2 SATURATION ABOVE 90%. PATIENT DETERMINED TO BE ASA APPROPRIATE FOR MAC. RAFAEL CRUZ CRNA PROVIDING ANESTHESIA-SEE ANESTHESIA RECORD.
--- NOTE | 2025-06-26 18:40 | NUR ---
SHIFT SUMMARY PATIENT IS ALERT AND ORIENTED, ABLE TO FOLLOW COMMANDS AND MAKE NEEDS KNOWN. TELE IN PLACE, SINUS RHYTHM 70'S, PATIENT HAD EPISODE OF SVT DURING AMBULATION, UNSUSTAINED, PATIENT ASYMPTOMATIC. SOFT BP'S THIS SHIFT, SBP 80'S-90'S, MAP >65, PATIENT DENIES DIZZINESS OR LIGHTHEADEDNESS, PROVIDER NOTIFIED, NEW ORDERS RECEIVED. SPO2 >90% ON RA, PATIENT DESATS WHILE SLEEPING REQUIRING 2L VIA NC. PATIENT DENIES NAUSEA OR VOMITING THROUGHOUT SHIFT, UPPER ENDOSCOPY AND COLONOSCOPY PERFORMED TODAY. PATIENT IS A SBA TO [facility] WITH FWW DUE TO WEAKNESS IN LOWER EXTREMITIES. PATIENT IS LYING IN BED, BED IN LOWEST POSITION, CALL LIGHT WIHTIN REACH.
[2025-06-26] MEDS ORDERED: Lidocaine 4% 1 Patch TOP SCH (20:20)
[2025-06-27] VITALS (12 sets, daily range): BP systolic 88–145; BP diastolic 57–73
[2025-06-27 06:18] LABS: Hematocrit 22.7 % (37.0-53.0); Hemoglobin 7.0 g/dL (13.5-17.5); Mean Corpuscular HGB Conc 30.8 g/dL (31.5-36.5); Mean Corpuscular Volume 93 fL (80-100); NRBC ABSOLUTE 0.00 K/mm3 (0.00-0.02); NRBC Auto 0.0 /100 WBC (0.0-0.2); Platelet Count 309 K/mm3 (150-400); RDW Coefficient Variation 15.0 % (11.7-14.2); RDW Standard Deviation 50.7 fL (35.1-46.3)
--- NOTE | 2025-06-27 06:41 | NUR ---
SHIFT SUMMARY PATIENT A/OX4. FAMILY AT BEDSIDE DURING BEGINNING OF SHIFT. PATIENT IN GOOD MOOD AND COOPERATIVE WITH ALL CARE. ABLE TO CHANGE POSITIONS IN BED INDEPENDENTLY. MEDICATED PRN FOR A/C BILAT HIP PAIN. SLEEP STUDY PERFORMED BY RT. NICKY PO INTAKE WELL. USING URINAL IN BED TO VOID. PATIENT REQUIRED MIDODRINE X1 FOR SBP <90. ELEVATED HR OCCASIONALLY WITH MINIMAL EXERTION BUT WOULD RETURN TO NORMAL QUICKLY. PLAN FOR ECHO TODAY. PATIENT IS ANXIOUS TO DISCHARGE, BUT SPOKE WITH HIM ABOUT EXPECTATIONS AND POSSIBILITY HE WILL NEED MORE TIME IN HOSPITAL. PLAN OF CARE ONGOING.
[2025-06-27 06:53] LABS: Anion Gap 12.0 mmol/L (3-11); Blood Urea Nitrogen 24.0 mg/dL (8-24); CO2, Blood 20.0 mmol/L (21-32); Calcium, Blood 8.5 mg/dL (8.5-10.1); Chloride, Blood 111.0 mmol/L (98-108); Creatinine, Blood 1.19 mg/dL (0.60-1.20); Glucose, Blood 114.0 mg/dL (70-99); Potassium, Blood 4.6 mmol/L (3.5-5.5); Sodium, Blood 138.0 mmol/L (136-145)
[2025-06-27] MEDS ORDERED: NS 250 ML IV PRN (08:10)
--- NOTE | 2025-06-27 17:49 | NUR ---
SHIFT SUMMARY A/OX4, ABLE TO MAKE NEEDS KNOWN. PT RECIEVED 1 UNIT PRBC THIS AM. BP'S IMPROVING, METOPROLOL AND ENTRESTO RESUMED TODAY. ECHO COMPLETED TODAY. C/O HIP/BACK PAIN, MEDICATED PER EMAR WITH TRAMADOL. TELE SR 70-80S. UP 1P WITH FWW. NO ACUTE CHANGES AT THIS TIME.
[2025-06-28] VITALS (7 sets, daily range): BP systolic 95–107; BP diastolic 60–78
[2025-06-28 04:39] LABS: Hematocrit 25.4 % (37.0-53.0); Hemoglobin 8.0 g/dL (13.5-17.5); Mean Corpuscular HGB Conc 31.5 g/dL (31.5-36.5); Mean Corpuscular Volume 93 fL (80-100); NRBC ABSOLUTE 0.00 K/mm3 (0.00-0.02); NRBC Auto 0.0 /100 WBC (0.0-0.2); Platelet Count 305 K/mm3 (150-400); RDW Coefficient Variation 15.3 % (11.7-14.2); RDW Standard Deviation 52.5 fL (35.1-46.3)
[2025-06-28 05:00] LABS: Anion Gap 10.0 mmol/L (3-11); Blood Urea Nitrogen 17.0 mg/dL (8-24); CO2, Blood 21.0 mmol/L (21-32); Calcium, Blood 8.6 mg/dL (8.5-10.1); Chloride, Blood 112.0 mmol/L (98-108); Creatinine, Blood 1.05 mg/dL (0.60-1.20); Glucose, Blood 102.0 mg/dL (70-99); Potassium, Blood 4.8 mmol/L (3.5-5.5); Sodium, Blood 138.0 mmol/L (136-145)
--- NOTE | 2025-06-28 06:40 | NUR ---
SHIFT SUMMARY PATIENT A/OX4. PLEASANT AND COOPERATIVE WITH CARE. VSS. ON ROOM AIR WITH SPO2 WNL. MEDICATED PRN WITH TRAMADOL 100MG FOR A/C BILAT HIP PAIN. PAIN CONTROL IMPROVED SINCE DOSAGE WAS INCREASED FROM DAY PRIOR. CHG BATH DONE. PATIENT NICKY PO INTAKE WELL. VOIDING IN URINAL. PATIENT WAS OOB IN WHEELCHAIR AND WAS ABLE TO ROLL HIMSELF AROUND UNIT. SAT IN WHEELCHAIR FOR HOUR AFTERWARDS. Q2-3HR TURN IN BED WITH MINMAL ASSISTANCE. PATIENT ABLE TO CHANGE BODY POSITIONS HIMSELF. MEPILEX ON COCCYX C/D/I. AM LABS DONE AND REVIWED, HGB IMPROVED TO 8.0 FROM 7.0 AFTER RECEIVING 1 UNIT PRBC YESTERDAY. PATIENT MOTIVATED TO DISCHARGE FROM HOSPITAL. PLAN OF CARE ONGOING.
--- NOTE | 2025-06-28 07:35 | NUR ---
NURSING PCU DAYSHIFT: Assumed care of pt at approx 0700. A/O, [place] [employer], very pleasant, cooperative w/care. General weakness though able to transfer w/staff assist. Skin fragile, small breakdown on buttocks w/mepilex in place, redness to groin, R big/long/middle toes w/scabs, wound photos in chart. C/O 4/10 chronic neck discomfort w/request for Tylenol. Tele in place, NSR w/BBB, no c/o CP/pressure, SBP 95 prior to a.m. meds, no noted edema. L/S dim in mid/lower lobes, respirations shallow, c/o dyspnea w/minimal exertion, O2 sat upper 90's on RA at rest, cont O2 monitoring in place. Abd SNT, BT+, voiding w/o difficulty using urinal. PICC to AGNIESZKA, s/l w/abx as scheduled. Pt denies any current needs or questions regarding plan of care. Call light in reach, able to use w/o difficulty. Awaiting rounding from PMD. Assistied w/repositioning for comfort and educated on importance of deep breathing exercises, pt verbalized and demonstrated understanding. Cont to monitor for changes.
[2025-06-28 09:57] LABS: Vancomycin, Trough 14.7 ug/mL (5.0-10.0)
[2025-06-28] MEDS ORDERED: Polyethylene Glycol 3350 17 gm PO PRN (10:55)
--- NOTE | 2025-06-28 17:38 | NUR ---
NURSING PCU DAYSHIFT SUMMARY: Pt has done well t/o shift. SBP remained >100 after 5mg midodrine administered w/a.m. meds. Respiratory status unchanged. No BM this shift, abd remains nontender. Seen by PMD and GI, new d/o received. P.T. ordered for discharge planning, home dose eliquis and chewable aspirin ordered. Pt OOB to recliner for lunch, tolerated well. Bath and linen change completed. Currently resting comfortably in bed visiting w/spouse and daughter. No s/s of acute distress at this time, call light in reach, cont to monitor until rpt is given to NOC RN.
[2025-06-28] MEDS ORDERED: Docusate Sodium/Senna 1 Tab PO SCH (21:00)
[2025-06-28] MEDS ORDERED: Lactobacil 2-S.Thermo-Bifido 1 1 Cap PO SCH (21:00)
[2025-06-29 03:37] VITALS: BP 102/62
[2025-06-29 04:33] LABS: Hematocrit 26.9 % (37.0-53.0); Hemoglobin 8.4 g/dL (13.5-17.5); Mean Corpuscular HGB Conc 31.2 g/dL (31.5-36.5); Mean Corpuscular Volume 95 fL (80-100); NRBC ABSOLUTE 0.00 K/mm3 (0.00-0.02); NRBC Auto 0.0 /100 WBC (0.0-0.2); Platelet Count 305 K/mm3 (150-400); RDW Coefficient Variation 15.3 % (11.7-14.2); RDW Standard Deviation 53.3 fL (35.1-46.3)
[2025-06-29 04:56] LABS: Albumin, Blood 2.3 g/dL (3.4-5.0); Anion Gap 10 mmol/L (3-11); Blood Urea Nitrogen 16 mg/dL (8-24); CO2, Blood 22 mmol/L (21-32); Calcium, Blood 8.9 mg/dL (8.5-10.1); Chloride, Blood 111 mmol/L (98-108); Creatinine, Blood 0.94 mg/dL (0.60-1.20); Glucose, Blood 89 mg/dL (70-99); Magnesium, Blood 1.3 mg/dL (1.6-2.4); Phosphorus, Blood 3.6 mg/dL (2.5-4.9); Potassium, Blood 4.7 mmol/L (3.5-5.5); Sodium, Blood 138 mmol/L (136-145)
--- NOTE | 2025-06-29 05:41 | NUR ---
NO ACUTE EVENTS OVERNIGHT. PT CALLED APPROPRIATELY. PT REQUESTED TO "WALK" THE LEE IN HIS WHEELCHAIR. PT TOLERATED WALK WELL. USED URINAL APPROPRIATELY. REFUSED BOWEL MEDS BECAUSE PT STATED HE HAD 2 BMs DURING THE DAY. BED LOCKED IN LOWEST POSITION. SCDs ON. CALL LIGHT WITHIN REACH.
[2025-06-29] MEDS ORDERED: Magnesium Sulf 2 GM/Water 50ML 50 ML IV ONE (07:30)
[2025-06-29 07:49] VITALS: BP 95/74
--- NOTE | 2025-06-29 07:50 | NUR ---
INITIAL ASSESSMENT: Patient is awake sitting up in the chair, he is alert and oriented x4, reports some chronic numbness and tingling in the soles of his feet and the pads of his fingertips. He is C/O 4/10 pain in his right hip, he states its better after his tramadol was given this AM. HRR, SR in the 80s-90s. LS CTA, Biox is 98% on RA. BT+, he states he has been having 2 loose stools daily. PPP. Call light in reach, patient is OOB to the chair.
[2025-06-29 08:54] LABS: Vancomycin, Random 18.9 ug/mL
[2025-06-29] MEDS ORDERED: Cholecalciferol 1000 Unit Tablet (=25MCG) PO SCH (09:00)
[2025-06-29 11:15] VITALS: BP 98/69
[2025-06-29 15:56] VITALS: BP 90/67
--- NOTE | 2025-06-29 18:22 | NUR ---
Summary: Patient has been alert and oriented T/O the shift. He has been up in the chair for meals and was out in the hallway in his WC for a walk. He was able to work with PT today and walk approx 6ft, but he fatigues easily. intermittent C/O pain in his left hip, he was medicated with Tylenol and Tramadol. HRR, he has been SR in the 80s-low 100s with activity.BP has been on the soft side, midodrine was given. LS CTA, biox WNL on RA. BT+. PPP. No acute changes this shift, plan for possible DC tomorrow. Will report to oncoming RN.
[2025-06-29 19:50] VITALS: BP 112/72
[2025-06-29 23:01] LABS: Vancomycin, Random 13.7 ug/mL
[2025-06-29 23:30] VITALS: BP 110/78
[2025-06-30 04:11] LABS: Hematocrit 31.0 % (37.0-53.0); Hemoglobin 9.6 g/dL (13.5-17.5); Mean Corpuscular HGB Conc 31.0 g/dL (31.5-36.5); Mean Corpuscular Volume 94 fL (80-100); NRBC ABSOLUTE 0.00 K/mm3 (0.00-0.02); NRBC Auto 0.0 /100 WBC (0.0-0.2); Platelet Count 384 K/mm3 (150-400); RDW Coefficient Variation 15.1 % (11.7-14.2); RDW Standard Deviation 52.6 fL (35.1-46.3)
[2025-06-30 04:29] VITALS: BP 101/73
--- NOTE | 2025-06-30 05:14 | NUR ---
SHIFT SUMMARY THIS RN ASSUMED CARE OF PATIENT AT 1900. PT A&O X4. ABLE TO MAKE NEED KNOWN. PT UP IN WHEELCHAIR DURING THIS SHIFT AND INDEPENDENTLY WHEELING HIMSELF DOWN HALLWAYS OF THE UNIT. VSS. ON RA. DYSPNEA WITH EXERTION. MAP REMAINED >65. USING URINAL INDEPENDENTLY. MEPILEX TO COCCYX REMAINS INTACT. NO S/S OF BLEEDING NOTED. MEDICATING PER EMAR FOR PAIN. BED IN LOWEST POSITION AND CALL LIGHT WITHIN REACH. THIS RN WILL REPORT TO ONCOMING DAYSHIFT RN.
[2025-06-30 06:24] LABS: Albumin, Blood 2.7 g/dL (3.4-5.0); Anion Gap 14 mmol/L (3-11); Blood Urea Nitrogen 19 mg/dL (8-24); CO2, Blood 19 mmol/L (21-32); Calcium, Blood 9.4 mg/dL (8.5-10.1); Chloride, Blood 107 mmol/L (98-108); Creatinine, Blood 1.09 mg/dL (0.60-1.20); Glucose, Blood 101 mg/dL (70-99); Magnesium, Blood 1.8 mg/dL (1.6-2.4); Phosphorus, Blood 4.4 mg/dL (2.5-4.9); Potassium, Blood 4.7 mmol/L (3.5-5.5); Sodium, Blood 135 mmol/L (136-145)
[2025-06-30 08:04] VITALS: BP 90/62
[2025-06-30] MEDS ORDERED: ASPI81CH PO (11:36)
[2025-06-30] MEDS ORDERED: OMEPRAZOLE MAGN20 MG PO (11:37)
[2025-06-30] MEDS ORDERED: PROBIOTIC1 EA13 PO (11:38)
[2025-06-30] MEDS ORDERED: CALC.25 PO (11:38)
[2025-06-30 12:41] VITALS: BP 105/64
--- NOTE | 2025-06-30 14:52 | NUR ---
DISCHARGE: PT HAS BEEN A&Ox4, SBA W/FWW WHEN OOB, OUT IN HALLWAY VIA W/C FOR A WALK THIS AM. PT REPORTS UNDERSTANDING OF THE EXERCISES HE SHOULD BE DOING AT HOME TO IMPROVE STRENGTH. PT MEDICATED PER EMAR FOR CHRONIC HIP PAIN. VSS. PT HAS BEEN CLEARED FOR DC HOME W/HOME HEALTH. PICC LINE REMAINS IN PLACE FOR IV ABX VIA INFUSION CLINIC. DC PAPERWORK AND INSTRUCTIONS PROVIDED, PT V/U. PT ESCORTED FROM UNIT VIA W/C W/OUT INCIDENT.
== END 2025-06-30 14:21 | disposition home or self-care (01) | DRG 377 ==
LOC: ER 08:20 → PCU 11:14
PROVIDERS: Internal Medicine; Internal Medicine Gastroenterology; Physician Assistant; ADMIT Internal Medicine
PROC: 3E03329 Introduction of Other Anti-infective into Peripheral Vein, Percutaneous Approach (ICD-10-PCS; 2025-06-25)
PROC: 3E02340 Introduction of Influenza Vaccine into Muscle, Percutaneous Approach (ICD-10-PCS; 2025-06-25)
PROC: 0DB78ZX Excision of Stomach, Pylorus, Via Natural or Artificial Opening Endoscopic, Diagnostic (ICD-10-PCS; principal; 2025-06-26 12:00)
PROC: 0DBK8ZZ Excision of Ascending Colon, Via Natural or Artificial Opening Endoscopic (ICD-10-PCS; 2025-06-26 12:00)
PROC: 0DBL8ZZ Excision of Transverse Colon, Via Natural or Artificial Opening Endoscopic (ICD-10-PCS; 2025-06-26 12:00)
PROC: 0DBM8ZZ Excision of Descending Colon, Via Natural or Artificial Opening Endoscopic (ICD-10-PCS; 2025-06-26 12:00)
PROC: 30233N1 Transfusion of Nonautologous Red Blood Cells into Peripheral Vein, Percutaneous Approach (ICD-10-PCS; 2025-06-27)
DX: K57.31 Diverticulosis of large intestine without perforation or abscess with bleeding (principal); I33.0 Acute and subacute infective endocarditis; I13.0 Hypertensive heart and chronic kidney disease with heart failure and stage 1 through stage 4 chronic kidney disease, or unspecified chronic kidney disease; N17.9 Acute kidney failure, unspecified; I50.22 Chronic systolic (congestive) heart failure; D62 Acute posthemorrhagic anemia; M86.8X8 Other osteomyelitis, other site; K64.4 Residual hemorrhoidal skin tags; K26.4 Chronic or unspecified duodenal ulcer with hemorrhage; E78.5 Hyperlipidemia, unspecified; I45.10 Unspecified right bundle-branch block; I25.10 Atherosclerotic heart disease of native coronary artery without angina pectoris; D63.1 Anemia in chronic kidney disease; N18.30 Chronic kidney disease, stage 3 unspecified; E87.5 Hyperkalemia; I44.0 Atrioventricular block, first degree; G89.29 Other chronic pain; I95.9 Hypotension, unspecified; I51.3 Intracardiac thrombosis, not elsewhere classified; M46.46 Discitis, unspecified, lumbar region; E83.42 Hypomagnesemia; M62.81 Muscle weakness (generalized); K64.8 Other hemorrhoids; K63.5 Polyp of colon; Z96.641 Presence of right artificial hip joint; Z79.899 Other long term (current) drug therapy; Z23 Encounter for immunization; Z79.891 Long term (current) use of opiate analgesic; Z79.82 Long term (current) use of aspirin; Z79.2 Long term (current) use of antibiotics; I25.2 Old myocardial infarction; Z86.74 Personal history of sudden cardiac arrest; Z95.5 Presence of coronary angioplasty implant and graft; Z98.890 Other specified postprocedural states; Z87.19 Personal history of other diseases of the digestive system; Z87.891 Personal history of nicotine dependence; Z86.14 Personal history of Methicillin resistant Staphylococcus aureus infection; Z86.19 Personal history of other infectious and parasitic diseases; Z86.79 Personal history of other diseases of the circulatory system; Z86.711 Personal history of pulmonary embolism; Z79.01 Long term (current) use of anticoagulants; Z86.73 Personal history of transient ischemic attack (TIA), and cerebral infarction without residual deficits; Z90.89 Acquired absence of other organs; Z90.49 Acquired absence of other specified parts of digestive tract; Z98.1 Arthrodesis status
CPT/HCPCS: 71045; 80048; 80053; 80069; 80202; 82570; 82728; 83540; 83550; 83735; 84300; 85025; 85027; 86850; 86900; 86901; 86923; 88305; 88342; 93005; 93010; 94762; 96365; 97110; 97112; 97162; 97530; 99285-25; A9270; C8929; J2371; J2470; J2704; J2997; J3373; J3475; J7030; J7040; J7050; P9016; Q9957

== ENCOUNTER 2025-07-01 00:30 | Day surgery (SDC) | payer OTHER ==
[~2025-07-01] VITALS: Ht 182.9 cm; Wt 84.5 kg
[~2025-07-01 00:30] MED LIST changes: +ASPI81CH PO; +ATOR40TA PO; +CALC.25 PO; +ELIQUIS5 M2 PO; +ENTRESTO 24 MG1 EACH PO; +FARXIGA10 MG PO; +FURO40 PO; +JARDIANCE10 MG PO; +OMEPRAZOLE MAGN20 MG PO; +POTA10T PO; +PROBIOTIC1 EA13 PO; +SPIR25 PO; +Vancomycin1 GM/2501 IV
[2025-07-01 13:41] VITALS: BP 106/69
[2025-07-01 14:34] LABS: Creatinine, Blood 1.32 mg/dL (0.60-1.20); Vancomycin, Random 17.0 ug/mL
== END 2025-07-01 16:31 | disposition home or self-care (01) ==
LOC: ATC 00:30
PROVIDERS: Internal Medicine
DX: T82.7XXA Infection and inflammatory reaction due to other cardiac and vascular devices, implants and grafts, initial encounter (principal); B95.62 Methicillin resistant Staphylococcus aureus infection as the cause of diseases classified elsewhere; I25.10 Atherosclerotic heart disease of native coronary artery without angina pectoris; I11.0 Hypertensive heart disease with heart failure; I50.20 Unspecified systolic (congestive) heart failure; E78.5 Hyperlipidemia, unspecified; Z79.899 Other long term (current) drug therapy
CPT/HCPCS: 36591; 80202; 82565; 96365; 96366; J3373; J7050

== ENCOUNTER 2025-07-03 06:25 | Day surgery (SDC) | payer OTHER ==
[2025-07-03 07:43] VITALS: BP 102/65
[2025-07-03 08:02] LABS: Creatinine, Blood 1.38 mg/dL (0.60-1.20); Vancomycin, Trough 17.0 ug/mL (5.0-10.0)
== END 2025-07-03 10:25 | disposition home or self-care (01) ==
LOC: ATC 06:25
PROVIDERS: Internal Medicine
DX: T82.7XXA Infection and inflammatory reaction due to other cardiac and vascular devices, implants and grafts, initial encounter (principal); B95.62 Methicillin resistant Staphylococcus aureus infection as the cause of diseases classified elsewhere; I11.0 Hypertensive heart disease with heart failure; I50.22 Chronic systolic (congestive) heart failure; E78.5 Hyperlipidemia, unspecified
CPT/HCPCS: 36591; 80202; 82565; 96365; J3373; J7050

== ENCOUNTER 2025-07-05 04:11 | Day surgery (SDC) | payer OTHER ==
[2025-07-05 07:32] VITALS: BP 89/69
== END 2025-07-05 09:10 | disposition home or self-care (01) ==
LOC: ATC 04:11
DX: T82.7XXA Infection and inflammatory reaction due to other cardiac and vascular devices, implants and grafts, initial encounter (principal); Y71.2 Prosthetic and other implants, materials and accessory cardiovascular devices associated with adverse incidents; R78.81 Bacteremia; B95.62 Methicillin resistant Staphylococcus aureus infection as the cause of diseases classified elsewhere; D64.89 Other specified anemias; E78.5 Hyperlipidemia, unspecified; I11.0 Hypertensive heart disease with heart failure; I50.20 Unspecified systolic (congestive) heart failure; I25.10 Atherosclerotic heart disease of native coronary artery without angina pectoris; M46.22 Osteomyelitis of vertebra, cervical region; N17.9 Acute kidney failure, unspecified; Z79.01 Long term (current) use of anticoagulants; Z79.899 Other long term (current) drug therapy
CPT/HCPCS: 36591; 96365; 99211; J3373; J7050

== ENCOUNTER 2025-07-07 00:02 | Day surgery (SDC) | payer OTHER ==
[~2025-07-07] VITALS: Ht 182.9 cm; Wt 84.5 kg
[2025-07-07] MEDS ORDERED: Alteplase Recombinant 2 MG / Vial IV SCH (07:00)
[2025-07-07 07:42] LABS: BASOPHILS ABSOLUTE AUTO 0.03 K/mm3 (0.00-0.23); BASOPHILS PERCENT AUTO 0 % (0-2); EOSINOPHILS ABSOLUTE AUTO 0.31 K/mm3 (0.00-0.68); EOSINOPHILS PERCENT AUTO 3 % (0-6); Hematocrit 28.7 % (37.0-53.0); Hemoglobin 9.0 g/dL (13.5-17.5); IMMATURE GRAN ABSOLUTE AUTO 0.02 K/mm3 (0.00-0.10); IMMATURE GRAN PERCENT AUTO 0 % (0-1); LYMPHOCYTES ABSOLUTE AUTO 3.90 K/mm3 (0.84-5.20); LYMPHOCYTES PERCENT AUTO 42 % (21-46); MONOCYTES ABSOLUTE AUTO 0.67 K/mm3 (0.16-1.47); MONOCYTES PERCENT AUTO 7 % (4-13); Mean Corpuscular HGB Conc 31.4 g/dL (31.5-36.5); Mean Corpuscular Volume 94 fL (80-100); NEUTROPHILS ABSOLUTE AUTO 4.46 K/mm3 (1.96-9.15); NEUTROPHILS PERCENT AUTO 48 % (41-73); NRBC ABSOLUTE 0.00 K/mm3 (0.00-0.02); NRBC Auto 0.0 /100 WBC (0.0-0.2); Platelet Count 330 K/mm3 (150-400); RDW Coefficient Variation 15.2 % (11.7-14.2); RDW Standard Deviation 52.6 fL (35.1-46.3)
[2025-07-07 07:45] VITALS: BP 97/72
[2025-07-07 08:03] LABS: Alanine Aminotransfer (ALT/SGP 37 U/L (12-78); Albumin, Blood 2.9 g/dL (3.4-5.0); Albumin/Globulin Ratio 0.7 (0.8-1.8); Anion Gap 10 mmol/L (3-11); Aspartate Aminotrans (AST/SGOT 21 U/L (12-37); Bilirubin, Total 0.4 mg/dL (0.1-1.0); Blood Urea Nitrogen 21 mg/dL (8-24); CO2, Blood 25 mmol/L (21-32); Calcium, Blood 9.0 mg/dL (8.5-10.1); Chloride, Blood 109 mmol/L (98-108); Creatinine, Blood 1.51 mg/dL (0.60-1.20); Globulin, Blood 4.3 g/dL (2.2-4.0); Glucose, Blood 109 mg/dL (70-99); Potassium, Blood 4.1 mmol/L (3.5-5.5); Sodium, Blood 140 mmol/L (136-145); Total Protein, Blood 7.2 g/dL (6.4-8.2); Vancomycin, Trough 14.5 ug/mL (5.0-10.0)
== END 2025-07-07 10:08 | disposition home or self-care (01) ==
LOC: ATC 00:02
PROVIDERS: Internal Medicine
DX: T82.7XXA Infection and inflammatory reaction due to other cardiac and vascular devices, implants and grafts, initial encounter (principal); R78.81 Bacteremia; B95.62 Methicillin resistant Staphylococcus aureus infection as the cause of diseases classified elsewhere; I11.0 Hypertensive heart disease with heart failure; I50.20 Unspecified systolic (congestive) heart failure; I25.10 Atherosclerotic heart disease of native coronary artery without angina pectoris; I51.3 Intracardiac thrombosis, not elsewhere classified; D64.89 Other specified anemias; E78.5 Hyperlipidemia, unspecified; N17.9 Acute kidney failure, unspecified; Y71.2 Prosthetic and other implants, materials and accessory cardiovascular devices associated with adverse incidents; Z79.01 Long term (current) use of anticoagulants; Z79.899 Other long term (current) drug therapy
CPT/HCPCS: 36591; 36593; 80053; 80202; 85025; 96374; J2997; J3373; J7050